=== PATIENT | male | born 1995 | race Caucasian/White ===

== ENCOUNTER 2025-08-09 20:37 | Emergency (ER) | payer OTHER ==
[~2025-08-09] VITALS: Ht 182.9 cm; Wt 95.0 kg
[2025-08-09 20:46] VITALS: O2SAT 97
[2025-08-09 21:22] LABS: BASOPHILS % 0.8 % (0.0-2.0); EOSINOPHILS % 0.4 % (0.0-5.0); HEMATOCRIT. 41.7 % (42.0-52.0); HEMOGLOBIN. 14.1 g/dL (14.0-18.0); LYMPHOCYTES % 23.9 % (20.0-50.0); MEAN PLATELET VOLUME 7.8 fl (7.4-10.4); MONOCYTES % 6.1 % (2.0-8.0); NEUTROPHILS % 68.8 % (40.0-76.0); PLATELET 356 x1000/uL (130-400); RED BLOOD CELL COUNT 4.81 mill/uL (4.7-6.1); RED CELL DISTRIBUTION WIDTH 13.1 % (11.6-14.6)
[2025-08-09 21:34] LABS: CREATININE 1.0 mg/dL (0.6-1.3); ETHANOL BLOOD 29 mg/dL (<10); UREA NITROGEN BLOOD 15 mg/dL (9-23)
[2025-08-09 21:36] LABS: ASPARTATE AMINOTRANSFERASE 29 IU/L (<34); BILIRUBIN DIRECT < 0.1 mg/dL (<=3.0); BILIRUBIN TOTAL 0.4 mg/dL (0.1-1.0); PROTEIN TOTAL 7.9 g/dL (6.0-8.3)
[2025-08-09] MEDS: ONDANSETRON HCL 4MG/2ML INJ IV ONE (21:59)
[2025-08-09] MEDS: SODIUM CHLORIDE 0.9% 1,000 ML IV ONE (21:59)
[2025-08-09 23:09] VITALS: BP 156/84; PULSE 76; RESP 16; TEMP 36.8; O2SAT 99
== END 2025-08-09 23:12 | disposition home or self-care (01) ==
LOC: ER 20:37
DX: F10.129 Alcohol abuse with intoxication, unspecified (principal); Y90.9 Presence of alcohol in blood, level not specified
CPT/HCPCS: 80076; 80048; 80320; 85025; 36415; 96361; 96374; 99283; J2405; J7030; G0480